=== PATIENT | female | born 1995 | race Two or more races ===

== ENCOUNTER 2023-02-17 19:24 | Emergency (ER) | payer BC, OTHER ==
[~2023-02-17] VITALS: Ht 157.5 cm; Wt 86.4 kg
[2023-02-17 19:51] VITALS: BP 119/71; PULSE 74; RESP 15; O2SAT 100
[2023-02-17 20:36] LABS: Basophils # (auto) 0.2 10 ^3/uL (0-0.2); Basophils % (auto) 1.1 % (0.0-2.0); Eosinophils # (auto) 0.2 10 ^3/uL (0-0.8); Eosinophils % (auto) 1.3 % (0.0-7.0); Hematocrit 41.6 % (36.0-46.0); Hemoglobin 13.5 g/dL (12.2-16.2); Lymphocytes # (auto) 1.6 10 ^3/uL (0.4-5.4); Lymphocytes % (auto) 10.4 % (10.0-50.0); Mean Corpuscular Hemoglobin 27.2 pg (28.0-32.0); Mean Corpuscular Hgb Conc. 32.5 g/dL (32.0-36.0); Mean Corpuscular Volume 83.9 fL (80.0-100.0); Monocytes # (auto) 0.8 10 ^3/uL (0-1.3); Monocytes % (auto) 5.4 % (0.0-12.0); Neutrophils # (auto) 12.9 10 ^3/uL (1.6-8.6); Neutrophils % (auto) 81.8 % (37.0-80.0); Red Blood Cells 4.96 10^6/uL (4.0-5.20); Red Cell Distribution Width 14.1 % (11.8-14.3); White Blood Cell 15.7 10^3/uL (4.4-10.8)
[2023-02-17 21:17] LABS: Alanine Aminotransferase 13 U/L (7-40); Albumin 4.2 g/dL (3.2-4.8); Alkaline Phosphatase 61 U/L (46-116); Anion Gap 7 (5-15); Aspartate Aminotransferase 18 U/L (13-40); BUN/Creatinine Ratio 8.7 (10.0-20.0); Bilirubin, Total 0.4 mg/dL (0.2-1.0); Blood Urea Nitrogen 8 mg/dL (9-23); Calcium 9.8 mg/dL (8.5-10.1); Carbon Dioxide 26 mmol/L (20-30); Chloride 108 mmol/L (98-107); Glucose 103 mg/dL (74-106); Sodium 141 mmol/L (136-145)
== END 2023-02-18 02:47 | disposition left against medical advice (07) ==
LOC: ER 19:24
DX: O03.4 Incomplete spontaneous abortion without complication (principal); R10.2 Pelvic and perineal pain; Z88.8 Allergy status to other drugs, medicaments and biological substances
CPT/HCPCS: 36415; 76801; 76817; 80053; 84702; 85025; 86850; 86900; 86901